=== PATIENT | female | born 1975 | race Caucasian/White ===

== ENCOUNTER 2017-10-12 16:18 | Emergency (ER) | payer OTHER ==
[~2017-10-12] VITALS: Ht 162.5 cm; Wt 59.0 kg
[2017-10-12] MEDS ORDERED: CYCLOBENZAPRINE5 M3 PO (18:27)
== END 2017-10-12 18:36 | disposition home or self-care (01) ==
LOC: ED
DX: S06.0X0A Concussion without loss of consciousness, initial encounter (principal); V49.88XA Car occupant (driver) (passenger) injured in other specified transport accidents, initial encounter; Y93.89 Activity, other specified; Y92.413 State road as the place of occurrence of the external cause; Y99.9 Unspecified external cause status